=== PATIENT | male | born 1965 | race Caucasian/White ===

== ENCOUNTER 2018-08-20 16:29 | Emergency (ER) | payer SELFPAY ==
[~2018-08-20] VITALS: Ht 165.1 cm; Wt 73.0 kg
[2018-08-20] MEDS ORDERED: ONDANSETRON HCL 4MG/2ML INJ IV STA (22:14)
[2018-08-20] MEDS ORDERED: SODIUM CHLORIDE 0.9% 1,000 ML IV ONE (22:14)
[2018-08-20] MEDS ORDERED: MORPHINE SULFATE 4 MG/ML CPJ (NOT FOR IM USE) IV STA (22:14)
[2018-08-20 23:36] LABS: BASOPHILS % 0.5 % (0.0-2.0); HEMATOCRIT. 42.7 % (42.0-52.0); HEMOGLOBIN. 14.5 g/dL (14.0-18.0); LYMPHOCYTES % 11.5 % (20.0-50.0); MEAN CORPUSCULAR HEMOGLOBIN 29.8 pg (28.0-32.0); MEAN CORPUSCULAR VOLUME 87.7 fL (80.0-94.0); MEAN PLATELET VOLUME 9.4 fl (7.4-10.4); PLATELET 198 x1000/uL (130-400); RED BLOOD CELL COUNT 4.87 mill/uL (4.7-6.1); RED CELL DISTRIBUTION WIDTH 13.4 % (11.6-14.6)
[2018-08-20 23:43] LABS: CHLORIDE 103 mEq/L (98-107)
[2018-08-20 23:50] LABS: CLARITY URINE CLEAR (CLEAR); COLOR URINE YELLOW (YELLOW); KETONES URINE 3+ (NEGATIVE); LEUKOCYTE ESTERASE URINE NEGATIVE (NEGATIVE); NITRITE URINE NEGATIVE (NEGATIVE); OCCULT BLOOD URINE NEGATIVE (NEGATIVE); PROTEIN URINE TRACE (NEGATIVE); SPECIFIC GRAVITY URINE 1.024 (1.005-1.030); UROBILINOGEN URINE 0.2 E.U./dL (0.2-1.0)
[2018-08-21] MEDS ORDERED: IOHEXOL-300 100 ML BOTTLE ONE (03:10)
[2018-08-21 05:13] VITALS: BP 137/67
== END 2018-08-21 05:14 | disposition home or self-care (01) ==
LOC: ER 16:29
DX: R10.11 Right upper quadrant pain (principal); Z98.890 Other specified postprocedural states
CPT/HCPCS: 36415; 74177; 80053; 81003; 83690; 85025; 96374; 96375; 99284; J2270; J2405; J7030; Q9967

== ENCOUNTER 2019-05-24 14:51 | Emergency (ER) | payer SELFPAY ==
[~2019-05-24] VITALS: Ht 160 cm; Wt 65.0 kg
[2019-05-24 17:30] LABS: HEMATOCRIT. 42.6 % (42.0-52.0); HEMOGLOBIN. 14.5 g/dL (14.0-18.0); MEAN CORPUSCULAR HEMOGLOBIN 30.6 pg (28.0-32.0); MEAN CORPUSCULAR VOLUME 90.1 fL (80.0-94.0); MEAN PLATELET VOLUME 8.4 fl (7.4-10.4); PLATELET 242 x1000/uL (130-400); RED BLOOD CELL COUNT 4.73 mill/uL (4.7-6.1); RED CELL DISTRIBUTION WIDTH 13.3 % (11.6-14.6)
[2019-05-24 17:35] LABS: CHLORIDE 110 mEq/L (98-107)
[2019-05-24] MEDS ORDERED: ONDANSETRON HCL 4MG/2ML INJ IV ONE (17:45)
[2019-05-24 17:52] LABS: PLATELET ESTIMATE NORMAL
[2019-05-24 17:56] LABS: CLARITY URINE CLEAR (CLEAR); COLOR URINE YELLOW (YELLOW); KETONES URINE TRACE (NEGATIVE); LEUKOCYTE ESTERASE URINE NEGATIVE (NEGATIVE); NITRITE URINE NEGATIVE (NEGATIVE); OCCULT BLOOD URINE NEGATIVE (NEGATIVE); PH URINE >=9.0 (4.5-8.0); PROTEIN URINE 1+ (NEGATIVE); SPECIFIC GRAVITY URINE 1.025 (1.005-1.030)
[2019-05-24] MEDS ORDERED: MORPHINE SULFATE 4 MG/ML CPJ (NOT FOR IM USE) IV STA (18:23)
[2019-05-24] MEDS ORDERED: FAMOTIDINE 20MG/2ML VIAL IV STA (18:23)
[2019-05-24] MEDS ORDERED: ONDANSETRON HCL 4MG/2ML INJ IV STA (18:23)
[2019-05-24] MEDS ORDERED: SODIUM CHLORIDE 0.9% 1,000 ML IV ONE (18:23)
[2019-05-24] MEDS ORDERED: KETOROLAC 15MG/ML VIAL IV ONE (20:15)
[2019-05-24 22:00] VITALS: BP 130/72
== END 2019-05-24 22:00 | disposition home or self-care (01) ==
LOC: ER 17:27
DX: R10.84 Generalized abdominal pain (principal); N43.3 Hydrocele, unspecified; F12.10 Cannabis abuse, uncomplicated; Z98.890 Other specified postprocedural states
CPT/HCPCS: 36415; 74176; 80053; 81003; 83690; 85025; 93005; 96374; 96375; 96376; 99284; J1885; J2270; J2405; J3490; J7030

== ENCOUNTER 2022-12-02 06:11 | Emergency (ER) | payer OTHER ==
[~2022-12-02] VITALS: Ht 157.5 cm; Wt 68.5 kg
[2022-12-02] MEDS ORDERED: MORPHINE SULFATE 4 MG/ML CPJ (NOT FOR IM USE) IV ONE (07:00)
[2022-12-02] MEDS ORDERED: MAGNESIUM/ALUMINUM HYDROXIDE/SIMETHICONE 30ML UDC PO ONE (07:00)
[2022-12-02] MEDS ORDERED: ONDANSETRON HCL 4MG/2ML INJ IV ONE (07:00)
[2022-12-02 08:27] LABS: CLARITY URINE CLEAR (CLEAR); COLOR URINE DARK YELLOW (YELLOW); KETONES URINE 2+ (NEGATIVE); LEUKOCYTE ESTERASE URINE NEGATIVE (NEGATIVE); NITRITE URINE NEGATIVE (NEGATIVE); OCCULT BLOOD URINE NEGATIVE (NEGATIVE); PH URINE 5.5 (4.5-8.0); PROTEIN URINE TRACE (NEGATIVE); SPECIFIC GRAVITY URINE 1.026 (1.005-1.030)
[2022-12-02 08:28] LABS: HEMATOCRIT. 41.8 % (42.0-52.0); HEMOGLOBIN. 14.1 g/dL (14.0-18.0); MEAN CORPUSCULAR HEMOGLOBIN 30.1 pg (28.0-32.0); MEAN CORPUSCULAR VOLUME 89.2 fL (80.0-94.0); MEAN PLATELET VOLUME 9.6 fl (7.4-10.4); PLATELET 267 x1000/uL (130-400); RED BLOOD CELL COUNT 4.69 mill/uL (4.7-6.1); RED CELL DISTRIBUTION WIDTH 13.8 % (11.6-14.6)
[2022-12-02 08:34] LABS: BASOPHILS % 0.4 % (0.0-2.0); EOSINOPHILS % 0.1 % (0.0-5.0); LYMPHOCYTES % 10.7 % (20.0-50.0); NEUTROPHILS % 83.8 % (40.0-76.0)
[2022-12-02 08:40] LABS: CHLORIDE 105 mEq/L (98-107)
[2022-12-02 08:46] LABS: ETHANOL BLOOD < 10 mg/dL
[2022-12-02 08:53] LABS: *AMPHETAMINES SCREEN URINE NEGATIVE (NEGATIVE); *BARBITURATES SCREEN URINE NEGATIVE (NEGATIVE); *BENZODIAZEPINES SCREEN URINE NEGATIVE (NEGATIVE); *COCAINE SCREEN URINE NEGATIVE (NEGATIVE); CANNABINOID URINE SCREEN PRESUMTIVE POSITIVE (NEGATIVE); METHADONE URINE SCREEN NEGATIVE (NEGATIVE); OPIATES URINE SCREEN PRESUMTIVE POSITIVE (NEGATIVE); PHENCYCLIDINE URINE SCREEN NEGATIVE (NEGATIVE)
[2022-12-02] MEDS ORDERED: VISCOUS LIDOCAINE 2% 15 ML UDC MM NR (09:00)
[2022-12-02] MEDS ORDERED: PANTOPRAZOLE SODIUM 40 MG/VIAL IV NR (09:00)
[2022-12-02] MEDS ORDERED: ONDA4TAB50 MT (10:06)
[2022-12-02] MEDS ORDERED: PROT40 MT (10:06)
[2022-12-02 10:35] VITALS: BP 133/78
== END 2022-12-02 10:37 | disposition home or self-care (01) ==
LOC: ER 06:11
DX: R10.13 Epigastric pain (principal); R03.0 Elevated blood-pressure reading, without diagnosis of hypertension; D72.829 Elevated white blood cell count, unspecified; R11.2 Nausea with vomiting, unspecified; F12.10 Cannabis abuse, uncomplicated; Z98.890 Other specified postprocedural states
CPT/HCPCS: 36415; 74176; 76705; 80053; 80305; 80320; 81003; 83690; 85025; 93005; 96374; 96375; 99285; C9113; J2270; J2405; Z7610; G0480

== ENCOUNTER 2023-04-30 17:50 | Emergency (ER) | payer OTHER ==
[~2023-04-30] VITALS: Ht 152.4 cm; Wt 59.0 kg
[~2023-04-30 17:50] MED LIST: ONDA4TAB50 MT; PROT40 MT
[2023-04-30 18:04] VITALS: O2SAT 99
[2023-04-30 18:39] LABS: BASOPHILS % 0.5 % (0.0-2.0); HEMATOCRIT. 40.2 % (42.0-52.0); HEMOGLOBIN. 13.5 g/dL (14.0-18.0); LYMPHOCYTES % 8.4 % (20.0-50.0); MEAN CORPUSCULAR HEMOGLOBIN 30.8 pg (28.0-32.0); MEAN CORPUSCULAR HGB CONC 33.7 g/dL (31.0-37.0); MEAN CORPUSCULAR VOLUME 91.2 fL (80.0-94.0); MEAN PLATELET VOLUME 8.7 fl (7.4-10.4); NEUTROPHILS % 89.1 % (40.0-76.0); PLATELET 226 x1000/uL (130-400); RED BLOOD CELL COUNT 4.41 mill/uL (4.7-6.1); RED CELL DISTRIBUTION WIDTH 13.9 % (11.6-14.6); WHITE BLOOD COUNT 8.4 x1000/uL (4.5-11.0)
[2023-04-30 18:46] LABS: CHLORIDE 106 mEq/L (98-107); INDEX HEMOLYSI 1 (1-3); INDEX ICTERIC 1 (1-4); INDEX LIPEMIC 1 (1-3); POTASSIUM 3.7 mEq/L (3.5-5.1); SODIUM 137 mEq/L (136-145)
[2023-04-30 18:55] LABS: TROPONIN I HIGH SENSITIVITY 14 ng/L (<78)
[2023-04-30 18:57] LABS: ALANINE AMINOTRANSFERASE 50 IU/L (13-61); ALBUMIN 4.1 g/dL (3.4-5.0); ASPARTATE AMINOTRANSFERASE 23 IU/L (15-37); BILIRUBIN TOTAL 0.7 mg/dL (0.1-1.0); CARBON DIOXIDE 26 mEq/L (21-32); CREATININE 0.7 mg/dL (0.6-1.3); GLUCOSE 149 mg/dL (70-105); PROTEIN TOTAL 7.3 g/dL (6.0-8.3); UREA NITROGEN BLOOD 12 mg/dL (7-21)
[2023-04-30 23:51] VITALS: TEMP 98.6
[2023-05-01] MEDS ORDERED: MORPHINE SULFATE 4 MG/ML CPJ (NOT FOR IM USE) IV STA (00:09)
[2023-05-01] MEDS ORDERED: METOCLOPRAMIDE HCL 10MG/2ML VIAL IV STA (00:09)
[2023-05-01] MEDS ORDERED: FAMOTIDINE 20MG/2ML VIAL IV STA (00:09)
[2023-05-01] MEDS ORDERED: SODIUM CHLORIDE 0.9% 1,000 ML IV ONE (00:15)
[2023-05-01] MEDS ORDERED: PROT20 MT (03:48)
[2023-05-01 04:04] VITALS: BP 120/50; PULSE 65; RESP 18
== END 2023-05-01 04:05 | disposition home or self-care (01) ==
LOC: ER 17:50
DX: R10.13 Epigastric pain (principal); F12.10 Cannabis abuse, uncomplicated
CPT/HCPCS: 99285; 80053; 83690; 85025; 84484; 36415; 93005; 96374; 96375; J3490; J2765; J2270; J7030